=== PATIENT | female | born 1970 | race Caucasian/White ===

== ENCOUNTER 2024-04-29 19:30 | Emergency (ER) | payer OTHER, SELFPAY ==
--- NOTE | ~2024-04-29 | XR_ITS ---
XR shoulder LT min 2V Ordering provider: Guanakito Warren MD History: . Fall/injury . Comparison: None. FINDINGS: BONES: No acute fracture or dislocation. Elevation of the humeral head is noted. JOINT SPACES: The acromioclavicular joint is normal. The glenohumeral joint is normal. SOFT TISSUES: Normal. IMPRESSION: No acute osseous abnormality left shoulder. Reviewed, dictated and finalized at location A. GER GAS
[2024-04-29 19:32] VITALS: BP 139/97; PULSE 80; RESP 15; TEMP 36.6; O2SAT 97
[2024-04-29 22:40] VITALS: BP 125/65; PULSE 74; RESP 18; O2SAT 99
--- NOTE | 2024-04-30 00:57 | ED.UPPEXIN ---
HPI - Extremity Injury (Upper) General Chief Complaint: Extremity Injury, Upper Stated Complaint: Left shoulder dislocated?, pain, fall Time Seen by Provider: 04/30/24 00:29 Source: patient Mode of arrival: ambulatory Limitations: no limitations History of Present Illness HPI narrative: This is a 54-year-old female that presents to the emergency department after a fall today with left shoulder pain. Reports she was falling and tried to catch herself with her left arm. Jefferson a pop in his shoulder. Reports decreased range of motion due to pain. She did not hit her head or lose consciousness. Denies numbness. Related Data Allergies Allergy/AdvReac Type Severity Reaction Status Date / Time No Known Allergies Allergy Verified 04/29/24 19:37 Review of Systems Review of Systems: CONSTITUTIONAL: Denies fever MUSCULOSKELETAL: Reports joint pain, and myalgia. NEUROLOGIC: Denies numbness, or weakness. All systems reviewed & are unremarkable except as noted in HPI and below PMFSH Social History Social History (Updated 04/30/24 @ 01:04 by Michelle Bailey PA-C) Smoking status: Never smoker Exam Narrative: GENERAL: Well-appearing, well-nourished, and in no acute distress. HEAD: Normocephalic, atraumatic. EYES: EOMI. CHEST: Clear to auscultation. No respiratory distress. No wheezes rales or rhonchi HEART: Regular rate and rhythm. No murmur heard. Normal peripheral pulses. EXTREMITIES: Decreased active ROM in the left shoulder due to pain. No edema or obvious deformity. Normal radial pulse. Normal sensation SKIN: Warm, dry, no rash. NEURO: No focal deficits. Alert and oriented x3. PSYCH: Normal mood and affect Course Course Emergency Course: Patient updated on workup and agrees with plan of care Vital Signs Vital signs: Vital Signs Temperature 97.8 F 04/29/24 19:32 Pulse Rate 80 04/29/24 19:32 Respiratory Rate 15 04/29/24 19:32 Blood Pressure 139/97 H 04/29/24 19:32 Pulse Oximetry 97 04/29/24 19:32 Oxygen Delivery Room Air 04/29/24 19:32 Temperature 97.8 F 04/29/24 19:32 Pulse Rate 74 04/29/24 22:40 Respiratory Rate 18 04/29/24 22:40 Blood Pressure 125/65 04/29/24 22:40 Pulse Oximetry 99 04/29/24 22:40 Oxygen Delivery Room Air 04/29/24 19:32 MDM - Extremity Injury (Upper) MDM Narrative Medical decision making narrative: Patient presents the emergency department after a left shoulder injury today. She is neurovascularly intact. Left shoulder x-ray without acute osseous abnormalities. Patient placed in a sling for comfort. Will be given follow-up with Orthopedics. She was given warnings to return to the ER Differential Diagnosis Differential diagnosis: Likely dislocation of shoulder, fracture of humerus and other (Shoulder sprain) Imaging Data Radiologist's impression: ITS Impressions Shoulder X-Ray 04/29/24 20:05 IMPRESSION: No acute osseous abnormality left shoulder. Critical Care Time Critical Care Time Critical Care Time: No Discharge Plan Discharge Clinical Impression: Sprain of left shoulder Qualifiers: Encounter type: initial encounter Shoulder sprain type: unspecified sprain Qualified Code(s): S43.402A - Unspecified sprain of left shoulder joint, initial encounter Patient Disposition: Home, Self-Care Condition: Stable Instructions: Shoulder Sprain (ED) Additional Instructions: Return to the ER if you experience fever, redness and swelling of your extremity, numbness or any other symptoms that are concerning to you Wear sling. No weight on the affected extremity. Ice and elevate extremity. Pain medication as needed and directed. Follow up with orthopedics for further care. Patient Language: Polish Follow-up/Referrals: PHYSICIAN NOT ON STAFF,NONSTAFF [Primary Care Provider] - Ridge Del Angel MD [Physician] -
== END 2024-04-30 02:07 | disposition home or self-care (01) ==
LOC: ANHED 04-30 02:01
PROVIDERS: Emergency Provider Physician Assistant
DX: S43.402A Unspecified sprain of left shoulder joint, initial encounter (principal); W19.XXXA Unspecified fall, initial encounter
CPT/HCPCS: 73030; 99283

== ENCOUNTER 2024-05-17 07:03 | Outpatient (CLI) | payer OTHER, SELFPAY ==
--- NOTE | ~2024-05-17 | XR_ITS ---
XR shoulder LT min 2V 05/17/2024 07:33 Indication: Left shoulder pain Procedure: 4 views left shoulder Comparison: 04/29/2024 Findings: There is a nondisplaced left humeral head fracture seen on one view only. Acromioclavicular joint and anatomic alignment. No foreign bodies. Impression: 1: Nondisplaced left humeral head fracture. Reviewed, dictated and finalized at location A. TUBING DYER Impression: 1: Nondisplaced left humeral head fracture.
== END 2024-05-17 07:04 | disposition home or self-care (01) ==
PROVIDERS: Visit Provider Orthopaedic Surgery
DX: S42.295A Other nondisplaced fracture of upper end of left humerus, initial encounter for closed fracture (principal); X58.XXXA Exposure to other specified factors, initial encounter
CPT/HCPCS: 73030

== ENCOUNTER 2024-06-01 08:13 | Outpatient (CLI) | payer OTHER, SELFPAY ==
--- NOTE | ~2024-06-01 | MR_ITS ---
EXAMINATION: MR shoulder LT wo con DATE: 06/01/2024 08:43 INDICATION: Left shoulder pain post fall one month prior. TECHNIQUE: Magnetic resonance imaging (MRI) of the left shoulder was performed without intravenous co ntrast. Sequences included axial PD-weighted FS FSE, coronal oblique PD-weighted FS FSE, coronal obli que T2-weighted FS FSE, sagittal PD-weighted FS FSE, and sagittal T1-weighted SE. COMPARISON: None. FINDINGS: Bones/other: There is a medially impacted fracture involving the medial side of the lesser tuberosity and the ante rior most articular surface of the humeral head. This results in 3 to 4 mm step-off along the articul ar surface. Location suggests possible reverse Hill-Sachs fracture related to a prior posterior dislo cation injury. Aside from the impacted fracture the alignment is normal. There is underlying marrow e minh. No other fractures or pathologic marrow replacing process. Partial tear along the humeral side of the inferior glenohumeral ligament. Coracoacromial arch: The acromion undersurface is curved in morphology (type II). The coracoacromial ligament is normal. M inimal acromioclavicular osteoarthritis. Rotator cuff: Mild supraspinatus and infraspinatus tendinopathy without tear. The teres minor tendon is normal. Mod erate subscapularis tendinopathy without tear. Normal rotator cuff muscle bulk and signal. Biceps tendon, glenoid labrum and glenohumeral cartilage: Long head of the biceps tendon is normal. There is a tear of the glenoid labrum of the superior to po sterior glenoid labrum which extends from the 10:00 position posteriorly to at least the 1:00 positio n anteriorly. It is indeterminate whether there is more anterior extension of the tear to the 4:00 po sition versus a Grant complex with absent anterosuperior glenoid labrum and longitudinal split tear along a thickened middle glenohumeral ligament. Aside from the cartilage disruption at the site of th e fracture the glenohumeral cartilage is normal. Fluid: Physiologic amount of fluid in the glenohumeral joint and biceps tendon sheath. No loose osteochondr al bodies. Small amount of fluid in the subacromial/subdeltoid bursa consistent with mild bursitis. IMPRESSION: 1. Impacted fracture involving the lesser tuberosity and anterior most articular surface of the humer al head and potentially a reverse Hill-Sachs fracture related to prior posterior dislocation. 2. Tear of the posterior and superior labrum. Equivocal extension attempted anterior labrum versus lo ngitudinal split tear of the middle glenohumeral ligament the setting of a Angier complex. 3. Mild subacromial/subdeltoid bursitis. Reviewed, dictated and finalized at location A. DESKTOP SUPPORT TECHNICIAN IMPRESSION: 1. Impacted fracture involving the lesser tuberosity and anterior most articula r surface of the humeral head and potentially a reverse Hill-Sachs fracture rel ated to prior posterior dislocation. 2. Tear of the posterior and superior labrum. Equivocal extension attempted ant erior labrum versus longitudinal split tear of the middle glenohumeral ligament the setting of a Angier complex. 3. Mild subacromial/subdeltoid bursitis.
== END 2024-06-01 08:14 | disposition home or self-care (01) ==
LOC: GOSHIMG 08:13
PROVIDERS: PCP Physician Assistant Surgical; Visit Provider Physician Assistant Surgical
DX: S42.295A Other nondisplaced fracture of upper end of left humerus, initial encounter for closed fracture (principal); S43.432A Superior glenoid labrum lesion of left shoulder, initial encounter; M75.52 Bursitis of left shoulder; X58.XXXA Exposure to other specified factors, initial encounter
CPT/HCPCS: 73221